=== PATIENT | male | born 1945 | race Caucasian/White ===

== ENCOUNTER 2020-07-27 16:31 | Observation (INO) ==
[2020-07-27 17:40] LABS: Amorphous Sediment,Urine Few per hpf (None-Few); Bacteria,Urine Many per hpf (None-Few); Bilirubin,Urine Negative (Negative); Blood,Urine Moderate (Negative); Calcium Oxalate Crystals,Urine Present; Clarity,Urine Ex.Turbid (Clear); Color,Urine Dark-Yellow (Yellow); Glucose,Urine (UA) Normal (Normal); Ketones,Urine Negative (Negative); Leukocyte Esterase,Urine Large (Negative); Mucus,Urine Few per lpf (None-Few); Nitrite,Urine Negative (Negative); PH,Urine 5.5 pH Units (5.0-8.0); Protein,Urine 30 mg/dL (Neg-Trace); RBC,Urine 50-100 per hpf (0-3); Specific Gravity,Urine 1.009 (1.010-1.025); Urobilinogen,Urine Normal (Normal); WBC,Urine TNTC per hpf (0-3)
[2020-07-27] MEDS ORDERED: 0.9 % Sodium Chloride 500 ML IVC STA (18:32)
[2020-07-27 19:46] LABS: Eosinophils % 0.4 %; Hemoglobin 8.5 g/dL (12.9-16.9); Mean Corpuscular Hemoglobin 34.4 pg (28.0-33.3); Red Blood Count 2.47 M/mcL (4.19-5.50)
[2020-07-27 19:48] LABS: Basophils % 0.4 %; Hematocrit 25.5 % (37.5-50.1); Immature Granulocytes % 0.2 % (0-4); Immature Platelets 4.3 % (1.1-6.1); Lymphocytes # 1.3 K/mcL (0.6-4.6); Lymphocytes % 24.4 %; Mean Corpuscular HGB Conc 33.3 g/dL (31.6-35.5); Mean Corpuscular Volume 103.2 fL (83.0-100.0); Mean Platelet Volume 10.7 fL (9.4-12.4); Monocytes # 0.4 K/mcL (0.0-1.3); Monocytes % 7.8 %; Neutrophils # 3.6 K/mcL (1.6-8.9); Segmented Neutrophils % 66.8 %; White Blood Count 5.4 K/mcL (4.3-11.1)
[2020-07-27 20:06] LABS: Calcium 8.2 mg/dL (8.6-10.3); Potassium 3.5 mEq/L (3.5-5.1)
[2020-07-27 20:24] LABS: Platelet Count 79 K/mcL (140-400)
[2020-07-27 20:25] LABS: Acanthocytes 1+ (Not Present); Anisocytosis 3+ (Not Present); Hypochromasia Present (Not Present); Platelet Estimate Decreased (Normal); Polychromasia 1+ (Not Present)
[2020-07-27] MEDS ORDERED: Naloxone 0.4 MG/ML INJ IVP PRN (20:55)
[2020-07-27] MEDS ORDERED: Melatonin 3 MG TABLET PO PRN (20:55)
[2020-07-27] MEDS ORDERED: Ondansetron 4 MG/2 ML VIAL IVP PRN (20:55)
[2020-07-27] MEDS ORDERED: Acetaminophen 325 MG TABLET PO PRN (20:55)
[2020-07-27] MEDS ORDERED: Furosemide 40 MG TABLET PO SCH (21:00)
[2020-07-27 22:04] LABS: Albumin 2.8 g/dL (3.5-5.7); Bilirubin,Direct 4.5 mg/dL (0.0-0.2); Bilirubin,Indirect 2.3 mg/dL (0.0-1.0); Bilirubin,Total 6.8 mg/dL (0.3-1.0); Globulin 2.9 g/dL (2.4-3.5); Total Protein 5.7 g/dL (6.4-8.9)
[2020-07-28 02:36] LABS: Basophils % 0.2 %; Eosinophils % 0.6 %; Immature Granulocytes % 0.2 % (0-4); Lymphocytes % 23.2 %
[2020-07-28 02:37] LABS: Hematocrit 23.5 % (37.5-50.1); Hemoglobin 7.7 g/dL (12.9-16.9); Immature Platelets 3.8 % (1.1-6.1); Lymphocytes # 1.1 K/mcL (0.6-4.6); Mean Corpuscular HGB Conc 32.8 g/dL (31.6-35.5); Mean Corpuscular Hemoglobin 34.1 pg (28.0-33.3); Mean Platelet Volume 11.2 fL (9.4-12.4); Monocytes # 0.4 K/mcL (0.0-1.3); Monocytes % 8.8 %; Neutrophils # 3.3 K/mcL (1.6-8.9); Red Blood Count 2.26 M/mcL (4.19-5.50); Red Cell Distribution Width 24.7 % (11.5-14.5); White Blood Count 4.9 K/mcL (4.3-11.1)
[2020-07-28 02:39] LABS: Platelet Count 67 K/mcL (140-400)
[2020-07-28 02:55] LABS: Anisocytosis 1+ (Not Present); Burr Cells 1+ (Not Present); Platelet Estimate Normal (Normal); Poikilocytosis 1+ (Not Present); Toxic Granulation Present (Not Present)
[2020-07-28 03:45] LABS: Albumin 2.3 g/dL (3.5-5.7); Albumin/Globulin Ratio 0.9 (1.1-2.2); Bilirubin,Total 5.9 mg/dL (0.3-1.0); Calcium 7.7 mg/dL (8.6-10.3); Globulin 2.6 g/dL (2.4-3.5); Potassium 3.3 mEq/L (3.5-5.1); Total Protein 4.9 g/dL (6.4-8.9)
[2020-07-28] MEDS ORDERED: Sodium Bicarbonate 150 MEQ in Water for inj. (sterile) 1,000 ML IVC SCH (08:00)
[2020-07-28 08:29] LABS: INR 1.4; Prothrombin Time 16.2 Seconds (9.4-12.1)
[2020-07-28 08:32] LABS: Activated Partial Thrombo Time 32.7 Seconds (26.0-36.0)
[2020-07-28] MEDS ORDERED: cefTRIAXone 1,000 MG in Water for inj. (sterile) 10 ML IVP SCH (09:00)
[2020-07-28] MEDS ORDERED: Spironolactone 12.5 MG TABLET PO SCH (09:00)
[2020-07-28] MEDS ORDERED: *HR* Vasopressin 20 UNIT/ML VIAL ONE (11:10)
[2020-07-28] MEDS ORDERED: Lidocaine -MPF 2% 2 ML VIAL ONE (11:12)
[2020-07-28] MEDS ORDERED: Isovue-300 50ML VIAL ONE (11:15)
[2020-07-28] MEDS ORDERED: *HR* FentaNYL (PF) 100 MCG/2 ML VIAL ONE (11:19)
[2020-07-28] MEDS ORDERED: Famotidine 20 MG/2 ML VIAL ONE (11:38)
[2020-07-28 13:34] LABS: Adenovirus Not Detected (Not Detect); Coronavirus 229E Not Detected (Not Detect); Coronavirus HKU1 Not Detected (Not Detect); Coronavirus NL63 Not Detected (Not Detect); Coronavirus OC43 Not Detected (Not Detect); Human Metapneumovirus Not Detected (Not Detect); Human Rhinovirus/Enterovirus Not Detected (Not Detect); Influenza A Subtype 2009 H1 Not Detected (Not Detect); Influenza B Not Detected (Not Detect); Parainfluenza Virus 1 Not Detected (Not Detect); Parainfluenza Virus 2 Not Detected (Not Detect); SARS-CoV-2 Not Detected (Not Detect)
[2020-07-28 13:35] LABS: Bordetella Pertussis Not Detected (Not Detect); Chlamydophila pneumoniae Not Detected (Not Detect); Mycoplasma pneumoniae Not Detected (Not Detect); Parainfluenza Virus 3 Not Detected (Not Detect); Parainfluenza Virus 4 Not Detected (Not Detect); Respiratory Syncytial Virus Not Detected (Not Detect)
[2020-07-28] MEDS ORDERED: Ondansetron 4 MG/2 ML VIAL ONE (14:31)
[2020-07-28] MEDS ORDERED: Melatonin 3 MG TABLET PO PRN (15:57)
[2020-07-28] MEDS ORDERED: Acetaminophen 325 MG TABLET PO PRN (15:57)
[2020-07-28] MEDS ORDERED: Naloxone 0.4 MG/ML INJ IVP PRN (15:57)
[2020-07-28] MEDS ORDERED: Ondansetron 4 MG/2 ML VIAL IVP PRN (15:57)
[2020-07-28] MEDS ORDERED: Albumin 25% 25gram/100mL 25 GM/100 ML IV.SOLN IVPB SCH (16:00)
[2020-07-28] MEDS: Albumin 25% 25gram/100mL 25 GM/100 ML IV.SOLN IVPB SCH ×2 (16:55→23:16)
[2020-07-28] MEDS: Sodium Bicarbonate 150 MEQ in Water for inj. (sterile) 1,000 ML IVC SCH (18:41)
[2020-07-29 02:51] LABS: Immature Granulocytes % 0.4 % (0-4)
[2020-07-29 02:52] LABS: Basophils % 0.2 %; Eosinophils % 0.4 %; Hematocrit 24.3 % (37.5-50.1); Immature Platelets 4.8 % (1.1-6.1); Lymphocytes # 1.1 K/mcL (0.6-4.6); Lymphocytes % 22.3 %; Mean Corpuscular HGB Conc 32.9 g/dL (31.6-35.5); Mean Corpuscular Hemoglobin 34.5 pg (28.0-33.3); Mean Corpuscular Volume 104.7 fL (83.0-100.0); Mean Platelet Volume 10.7 fL (9.4-12.4); Monocytes # 0.3 K/mcL (0.0-1.3); Monocytes % 6.1 %; Neutrophils # 3.6 K/mcL (1.6-8.9); Red Blood Count 2.32 M/mcL (4.19-5.50); Red Cell Distribution Width 25.1 % (11.5-14.5); Segmented Neutrophils % 70.6 %; White Blood Count 5.1 K/mcL (4.3-11.1)
[2020-07-29 02:55] LABS: Platelet Count 78 K/mcL (140-400)
[2020-07-29 03:09] LABS: Albumin 2.9 g/dL (3.5-5.7); Albumin/Globulin Ratio 1.1 (1.1-2.2); Bilirubin,Total 6.8 mg/dL (0.3-1.0); Calcium 8.3 mg/dL (8.6-10.3); Globulin 2.6 g/dL (2.4-3.5); Potassium 3.8 mEq/L (3.5-5.1); Total Protein 5.5 g/dL (6.4-8.9)
[2020-07-29 03:29] LABS: Anisocytosis 1+ (Not Present); Platelet Estimate Decreased (Normal); Poikilocytosis 1+ (Not Present); Polychromasia 1+ (Not Present)
[2020-07-29 03:32] LABS: Folate 9.9 ng/mL (3.0-16.0)
[2020-07-29 03:45] LABS: % Iron Saturation 20 % (20-55); Ferritin 206 ng/mL (20-250); Iron 41 mcg/dL (65-175); Transferrin 147 mg/dL (203-362); Vitamin B12 > 1500 pg/mL (250-1100)
[2020-07-29] MEDS: cefTRIAXone 1,000 MG in Water for inj. (sterile) 10 ML IVP SCH (07:53)
[2020-07-29] MEDS: Albumin 25% 25gram/100mL 25 GM/100 ML IV.SOLN IVPB SCH ×3 (07:53→23:47)
[2020-07-29] MEDS: Sodium Bicarbonate 150 MEQ in Water for inj. (sterile) 1,000 ML IVC SCH (10:05)
[2020-07-29] MEDS: Furosemide 40 MG TABLET PO SCH (17:07)
[2020-07-30] MEDS: Furosemide 40 MG TABLET PO SCH ×2 (08:52→17:15)
[2020-07-30] MEDS: cefTRIAXone 1,000 MG in Water for inj. (sterile) 10 ML IVP SCH (08:53)
[2020-07-30] MEDS: Albumin 25% 25gram/100mL 25 GM/100 ML IV.SOLN IVPB SCH ×3 (08:53→23:40)
[2020-07-31 06:22] LABS: Basophils % 0.5 %; Eosinophils % 0.5 %; Hematocrit 23.2 % (37.5-50.1); Hemoglobin 7.4 g/dL (12.9-16.9); Immature Granulocytes % 0.5 % (0-4); Immature Platelets 2.5 % (1.1-6.1); Lymphocytes # 1.1 K/mcL (0.6-4.6); Lymphocytes % 29.9 %; Mean Corpuscular HGB Conc 31.9 g/dL (31.6-35.5); Mean Corpuscular Hemoglobin 33.6 pg (28.0-33.3); Mean Corpuscular Volume 105.5 fL (83.0-100.0); Mean Platelet Volume 10.7 fL (9.4-12.4); Monocytes # 0.4 K/mcL (0.0-1.3); Monocytes % 10.1 %; Neutrophils # 2.2 K/mcL (1.6-8.9); Red Cell Distribution Width 25.5 % (11.5-14.5); Segmented Neutrophils % 58.5 %; White Blood Count 3.7 K/mcL (4.3-11.1)
[2020-07-31 06:24] LABS: Platelet Count 74 K/mcL (140-400)
[2020-07-31 06:27] LABS: INR 1.5; Prothrombin Time 16.8 Seconds (9.4-12.1)
[2020-07-31 06:52] LABS: Macrocytosis Present (Not Present)
[2020-07-31 06:53] LABS: Anisocytosis 2+ (Not Present); Platelet Estimate Slight Decrease (Normal)
[2020-07-31] MEDS: Furosemide 40 MG TABLET PO SCH ×2 (08:14→16:23)
[2020-07-31] MEDS: cefTRIAXone 1,000 MG in Water for inj. (sterile) 10 ML IVP SCH (08:15)
[2020-07-31] MEDS: Albumin 25% 25gram/100mL 25 GM/100 ML IV.SOLN IVPB SCH ×3 (08:15→23:24)
[2020-07-31] MEDS ORDERED: 0.9 % Sodium Chloride 500 ML ONE (10:04)
[2020-08-01] MEDS: cefTRIAXone 1,000 MG in Water for inj. (sterile) 10 ML IVP SCH (08:55)
[2020-08-01] MEDS: Albumin 25% 25gram/100mL 25 GM/100 ML IV.SOLN IVPB SCH (08:55)
[2020-08-01] MEDS: Furosemide 40 MG TABLET PO SCH (08:56)
[2020-08-01 10:44] VITALS: BP 95/56
[2020-08-01] MEDS ORDERED: Albumin 25% 25gram/100mL 25 GM/100 ML IV.SOLN IVPB ONE (11:36)
== END 2020-08-01 13:19 | disposition hospice, home (50) ==
LOC: 3ANU 16:31 → EMEROOARM 16:31 → SUATTDRO 19:44 → 3ANU 20:08 → 2ANU 07-29 12:43
PROVIDERS: ADMIT Family Medicine; ATTEND Internal Medicine
PROC: IRDRAIN (2020-07-31 12:00)